=== PATIENT | male | born 1985 | race Hispanic/Latino ===

== ENCOUNTER 2022-04-24 20:53 | Emergency (ER) | payer BC ==
[~2022-04-24] VITALS: Ht 185.4 cm; Wt 140.2 kg
[2022-04-24] MEDS ORDERED: MUCINEX DM ER1 EACH PO (23:22)
[2022-04-24] MEDS ORDERED: CLEOCIN HCL300 MG PO (23:22)
[2022-04-24] MEDS ORDERED: IBUPROFEN800 MG PO (23:22)
[2022-04-24] MEDS ORDERED: CEFDINIR300 MG PO (23:22)
[2022-04-24] MEDS ORDERED: MUPIROCIN22 GM TOP (23:22)
[2022-04-24] MEDS ORDERED: BENZONATATE100 MG PO (23:22)
== END 2022-04-24 23:30 | disposition home or self-care (01) ==
LOC: ER 21:12
DX: L03.312 Cellulitis of back [any part except buttock and flank] (principal); J02.9 Acute pharyngitis, unspecified; H66.93 Otitis media, unspecified, bilateral; E11.9 Type 2 diabetes mellitus without complications; E78.5 Hyperlipidemia, unspecified; F17.210 Nicotine dependence, cigarettes, uncomplicated